=== PATIENT | female | born 1980 | race Caucasian/White ===

== ENCOUNTER 2017-04-16 05:38 | Observation (INO) | payer OTHER ==
--- NOTE | 2017-04-16 21:58 | GHP ---
[f rep st] HISTORY AND PHYSICAL DATE OF ADMISSION: 04/16/2017 ADMISSION DIAGNOSES: 1. Intrauterine at 37-5/7 weeks' gestation. 2. Contractions. DISCHARGE DIAGNOSES: Intrauterine at 37-5/7 weeks' gestation with false labor. HISTORY OF PRESENT ILLNESS: Patient is a 36-year-old, 3, para 1-0-1-1, at 37-5/7 weeks' ges tation who presented with contractions increasing in frequency and intensity this morning. She was dilated to 2 cm. Her contractions were somewhat spaced out and palpated mild. She did ambulate for several hours, and her cervix did not change. Management options were reviewed with the patient. Patient elected to go home, and labor precautions and kick counts were given. Patient denies any va ginal bleeding, loss of fluid, nausea, vomiting, headaches, changes in vision. She states there is good movement. Patient will follow up in the office as scheduled for her routine v isit. heart tracing is category 1 and reactive. She is having occasional contractions on the monitor. /[id number]/MODL
== END 2017-04-16 09:15 | disposition home or self-care (01) ==
LOC: INTOOBSV 05:38 → FLD 05:38
PROVIDERS: ADMIT Obstetrics & Gynecology; ATTEND Obstetrics & Gynecology
DX: O47.1 False labor at or after 37 completed weeks of gestation (principal); Z3A.37 37 weeks gestation of pregnancy
CPT/HCPCS: 59025; G0378

== ENCOUNTER 2017-04-23 04:15 | Inpatient (IN) | payer OTHER ==
[2017-04-23] MEDS ORDERED: LR 1,000 ML IV PRN (04:31)
[2017-04-23] MEDS ORDERED: TERBUTALINE SULFATE 1 MG/ML VIAL IV PRN (04:31)
[2017-04-23] MEDS ORDERED: IBUPROFEN 600 MG TAB PO PRN (04:31)
[2017-04-23] MEDS ORDERED: OLIVE OIL 118 ML BTL MISC PRN (04:31)
[2017-04-23] MEDS ORDERED: EPSOM SALT 454 GM TP PRN (04:31)
[2017-04-23] MEDS ORDERED: OXYTOCIN/RINGERS LACTATE 1,000 ML IV PRN (04:31)
[2017-04-23] MEDS ORDERED: LIDOCAINE 1% 2 ML INJ ONE (06:25)
[2017-04-23 07:06] LABS: % IMMATURE GRANULYOCYTES 0.7 % (0.0-1.1); ADD DIFF? NO; ADD MORPH? NO; ADD SCAN? NO; ATYPICAL LYMPHOCYTE FLAG 0 (0-99); FRAGMENT RBC FLAG 0 (0-99); HEMATOCRIT 40.6 % (38.0-47.0); HEMOGLOBIN 13.9 g/dL (12.6-16.3); LEFT SHIFT FLG 0 (0-99); LIPEMIA HEMOLYSIS FLAG 90 (0-99); MEAN CELL HEMOGLOBIN 30.3 pg (27.9-34.1); MEAN CELL HEMOGLOBIN CONCENTR. 34.2 g/dL (32.4-36.7); MEAN CELL VOLUME 88.6 fL (81.5-99.8); MEAN PLATELET VOLUME 10.1 fL (8.7-11.7); PLATELET CLUMPS FLAG 0 (0-99); PLATELET COUNT 267 10^3/uL (150-400); RED BLOOD CELL COUNT 4.58 10^6/uL (4.18-5.33); RED CELL DISTRIBUTION WIDTH 14.1 % (11.5-15.2)
[2017-04-23] MEDS ORDERED: OLIVE OIL 118 ML BTL ONE (07:48)
[2017-04-23] MEDS ORDERED: AMMONIA AROMATIC 1 EACH AMP IH ONE (07:48)
[2017-04-23] MEDS ORDERED: LIDOCAINE 1% 300 MG/30 ML SDV ONE (07:48)
[2017-04-23] MEDS ORDERED: TERBUTALINE SULFATE 1 MG/ML VIAL ONE (07:49)
[2017-04-23] MEDS ORDERED: OXYTOCIN 10 UNIT/ML VIAL ONE (07:49)
[2017-04-23] MEDS ORDERED: MISOPROSTOL 200 MCG TAB ONE (07:49)
--- NOTE | 2017-04-23 09:50 | GHP ---
[f rep st] PREOP HISTORY AND PHYSICAL DATE OF ADMISSION: 04/23/2017 HISTORY UPON ADMISSION: The patient is a 36-year-old, G3, P1, A1, with estimated due date of 2016, who presents at 38 weeks and 5 days with spontaneous labor. The patient began contractions ap proximately 2 a.m., and upon presentation she was 4 cm dilated. The patient has had a natural appro ach and has been laboring well, and just had spontaneous rupture of membranes with clear fluid. The patient has started to feel the urge to push. She has had good movement. Has had nausea thr ough the labor, but no emesis. She has had a small amount of bleeding with the fluid. CARE: Patient has been with [facility] since 9 weeks gestation. The patient has hypothyroidism and has been on [place] Thyroid replacement. The patient has had her labs checked du ring the and they have been in good range. The patient has a history of MTHFR. Due to fa ofelia history of diabetes the patient did a 1-hour Glucola in 1st trimester, as well as at 28 weeks, and both of these were normal. The estimated weight at the 21 week ultrasound, was the 81st p ercentile, and the patient had a followup ultrasound at 35 weeks that showed the 75th percentile est imated weight. The patient has been otherwise uncomplicated. LABS: Include maternal blood type O positive, with negative antibody screen. RPR nonreact mikael. Rubella immune. Hepatitis B surface antigen negative. HIV negative. TSH was 0.8. Pap smear normal. Gonorrhea and chlamydia were negative. Verifi testing was negative and MSAFP was negative . 1-hour Glucola was 76 at 28 weeks and her hematocrit was 34%. A followup hematocrit after iron i mproved to 36%. GBS culture was negative. PAST MEDICAL HISTORY: The patient was doing cyclic progesterone and conceived on progesterone suppo rt, this was continued through the 1st trimester. The patient is heterozygous for MTHFR. Investiga joe because of a family history. The patient had childhood asthma and this flares up with cigarette smoke. The patient has had hypothyroidism and adrenal fatigue, and has been on [place] therapy. Th e patient has a history of GERD, and has been managed on Zantac. History of pyelonephritis x1 in co llege. The patient has had some ocular migraines. PAST SURGICAL HISTORY: Breast biopsy at age 14. D and C, due to a blighted ovum in 2009. PAST OBSTETRIC HISTORY: May 2010, a D and C for a blighted ovum. In August 2011, a male delivere d at 7 pounds at 40 weeks gestation after spontaneous labor. The patient did have an epidural with that delivery. She had heavy bleeding 6 weeks . The patient delivered previou y in [place]. ALLERGIES: The patient is allergic to latex, penicillin, and Augmentin. Has an allergy to corn margaret t affects her breathing. CURRENT MEDICATIONS: vitamins, [place] Thyroid, uncertain dose at this time. Vitamin D, pr obiotics and Zantac. SOCIAL HISTORY: The patient is , lives with her , and their son. The patient is a no nsmoker, no alcohol or drug use. PHYSICAL EXAM: GENERAL: Upon admission, the patient is a well-developed, well-nourished, white fem cliff, who is in distress with strong contractions at this time. VITAL SIGNS: Upon admission, the sonia cristine's blood pressure was 122/81, and the patient was afebrile with a temperature of 37.2. h eart tone monitoring has revealed category 1 tracing, and the patient has been on intermittent monit oring recently, has had a baseline in the 120s, with moderate variability and accelerations. Baseli ne has recently shown a drop down to the 110s. Admission exam, the patient was 4 cm dilated, 80% ef faced, at -1 station. The patient was recently examined and was 9 cm with palpable bag of fluid, 90 % effaced, at 0 station. There was evidence of some leakage of fluid that was clear, but blood ting ed. EXTREMITIES: Nontender, no edema. ASSESSMENT: Intrauterine at 38 weeks and 5 days, with spontaneous labor and active proces s, expect pushing soon. GBS negative. History of hypothyroidism on [place] orally. PLAN: Expect vaginal delivery soon. /[id number]/MODL
[2017-04-23] MEDS ORDERED: ACETAMINOPHEN 325 MG TAB PO PRN (11:10)
[2017-04-23] MEDS ORDERED: HYDROCODONE/APAP 5/325 TAB PO PRN (11:10)
--- NOTE | 2017-04-23 11:14 | OBPROC ---
- Labor and Delivery Onset of Contractions Date: 04/23/17 Onset of Contractions Time: 02:30 Onset of Contractions Type: Spontaneous Rupture of Membranes Date: 04/23/17 Rupture of Membranes Time: 09:48 Rupture of Membranes Type: Spontaneous Amniotic Fluid Color: Clear Dilation Complete Time: 09:29 Delivery Type: Spontaneous Placenta Delivery Date: 04/23/17 Placenta Delivery Time: 10:37 Episiotomy/Laceration: 2nd Degree, Midline, Perineal Repair: 3-0, Vicryl EBL: 450 Complications: None - Medications Labor Augmentation/Induction Meds Used: None Anesthesia: Local (Specify) (1% marcaine) - Info A Delivery Date: 04/23/17 Delivery Time: 10:31 Sex of Infant: Male (Keshawn Hanks) Score (1 Min): 8 Score (5 Min): 9
[2017-04-23] MEDS: IBUPROFEN 600 MG TAB PO PRN ×2 (17:54→23:52)
[2017-04-23 20:44] VITALS: RESP 16
[2017-04-23] MEDS: DOCUSATE SODIUM 100 MG CAP PO PRN (21:01)
[2017-04-24] MEDS: IBUPROFEN 600 MG TAB PO PRN ×3 (06:37→18:40)
[2017-04-24] MEDS: DOCUSATE SODIUM 100 MG CAP PO PRN ×2 (09:28→21:06)
[2017-04-24] MEDS: IRON POLYSAC/IRON HEME 28 MG TAB PO SCH ×2 (09:28→21:07)
[2017-04-24] MEDS: THYROID 60 MG TAB PO SCH (09:29)
--- NOTE | 2017-04-24 09:58 | SOAPPROG ---
SOAP Progress Note Assessment/Plan: Assessment: PPD 1 s/p considering D/C today Plan: watch BF success today. 04/24/17 09:53 Subjective: Pt doing well. Bld has lessened. urinating fine. Getting better success with BF than with their first. Mod cramps - using ibu Objective: Vital Signs Temp Pulse Resp BP Pulse Ox 36.6 C 98 16 97/68 L 98 04/24/17 08:20 04/24/17 08:20 04/24/17 08:20 04/24/17 08:20 04/24/17 08:20 Laboratory Results 04/24/17 06:40 04/23/17 04/24/17 04/25/17 05:59 05:59 05:59 Output Total 450 Balance -450 Physical Exam - Physical Exam General Appearance: WD/WN Abdomen: non-tender, soft, other (FF at umb -2) Pelvic Exam: vaginal bleeding (normal lochia) Extremities: non-tender, pedal edema (minimal) Neuro/Psych: normal mood/affect ICD10 Worksheet Patient Problems: Problems Problem Status Onset (spontaneous vaginal delivery) Acute
[2017-04-25] MEDS: IBUPROFEN 600 MG TAB PO PRN ×3 (00:49→13:27)
[2017-04-25] MEDS: THYROID 60 MG TAB PO SCH (06:31)
[2017-04-25] MEDS: IRON POLYSAC/IRON HEME 28 MG TAB PO SCH (07:42)
[2017-04-25] MEDS: DOCUSATE SODIUM 100 MG CAP PO PRN (07:42)
[2017-04-25 11:34] VITALS: BP 119/76; PULSE 79; TEMP 97; O2SAT 100
--- NOTE | 2017-04-25 13:04 | SOAPPROG ---
SOAP Progress Note Assessment/Plan: Assessment: PPD 2 s/p anemia on iron hypothyroid on [place] Plan: D/C home 04/24/17 09:53 04/25/17 13:01 Subjective: Pt doing well. Baby has been latching and feels milk is coming in. urinating fine. bld has decreased from yesterday. bottom not too sore - ok with ibu. Objective: Vital Signs Temp Pulse Resp BP Pulse Ox 36.1 C 79 16 119/76 100 04/25/17 10:30 04/25/17 10:30 04/25/17 10:30 04/25/17 10:30 04/25/17 10:30 Laboratory Results 04/24/17 06:40 04/24/17 04/25/17 04/26/17 05:59 05:59 05:59 Output Total 450 Balance -450 Physical Exam - Physical Exam General Appearance: WD/WN Abdomen: non-tender, soft, other (Ff at umb -2) Pelvic Exam: vaginal bleeding (normal lochia) Extremities: non-tender, pedal edema (minimal) Neuro/Psych: normal mood/affect ICD10 Worksheet Patient Problems: Problems Problem Status Onset (spontaneous vaginal delivery) Acute
== END 2017-04-25 13:30 | disposition home or self-care (01) | DRG 775 ==
LOC: FLD 04:15 → OBSVTOIN 04:15 → FOB 13:17
PROVIDERS: ADMIT Obstetrics & Gynecology; ATTEND Obstetrics & Gynecology
PROC: 10E0XZZ Delivery of Products of Conception, External Approach (ICD-10-PCS; principal; 2017-04-23)
PROC: 0KQM0ZZ Repair Perineum Muscle, Open Approach (ICD-10-PCS; principal; 2017-04-23)
DX: O70.1 Second degree perineal laceration during delivery (principal); O99.283 Endocrine, nutritional and metabolic diseases complicating pregnancy, third trimester; E03.9 Hypothyroidism, unspecified; Z3A.38 38 weeks gestation of pregnancy; Z37.0 Single live birth
CPT/HCPCS: J2590; J3105